=== PATIENT | female | born 1985 | race Caucasian/White ===

== ENCOUNTER 2016-10-27 17:53 | Emergency (ER) | payer MEDICAID ==
[~2016-10-27] VITALS: Ht 170.2 cm; Wt 90.9 kg
[2016-10-27 19:14] VITALS: BP 125/60
== END 2016-10-27 19:17 | disposition home or self-care (01) ==
LOC: EMS 17:56
DX: S80.02XA Contusion of left knee, initial encounter (principal); F17.210 Nicotine dependence, cigarettes, uncomplicated; W10.8XXA Fall (on) (from) other stairs and steps, initial encounter; Y93.89 Activity, other specified; Y92.89 Other specified places as the place of occurrence of the external cause; Y99.8 Other external cause status
CPT/HCPCS: 99284

== ENCOUNTER 2018-07-06 14:37 | Emergency (ER) | payer SELFPAY ==
[~2018-07-06] VITALS: Ht 157.5 cm; Wt 70.5 kg
[2018-07-06] MEDS ORDERED: CYCL10 PO (15:13)
[2018-07-06] MEDS ORDERED: TRAM50TA4 PO (15:13)
[2018-07-06] MEDS ORDERED: IBUPROFEN 600 MG TABLET PO ONE (15:15)
[2018-07-06] MEDS ORDERED: ACETAMINOPHEN 500 MG TABLET PO ONE (15:15)
[2018-07-06 19:57] VITALS: BP 120/80
== END 2018-07-06 19:59 | disposition home or self-care (01) ==
LOC: EMS 14:37
DX: Z02.89 Encounter for other administrative examinations (principal); M54.2 Cervicalgia; M54.5 Low back pain; F31.9 Bipolar disorder, unspecified; F17.210 Nicotine dependence, cigarettes, uncomplicated; Z98.890 Other specified postprocedural states; Z79.899 Other long term (current) drug therapy
CPT/HCPCS: 72070

== ENCOUNTER 2021-06-11 08:16 | Inpatient (IN) | payer MEDICAID ==
[~2021-06-11] VITALS: Ht 170.2 cm; Wt 67.5 kg
[~2021-06-11 08:16] MED LIST: CYCL-448 PO; TRAM50TA4 PO
[2021-06-11] MEDS ORDERED: DiphenhydrAMINE HCL 50 MG/ML VIAL IM ONE (08:30)
[2021-06-11] MEDS ORDERED: HALOPERIDOL LACTATE 5 MG/ML VIAL IM ONE ×2 (08:30→09:15)
[2021-06-11] MEDS ORDERED: LORazepam 2 MG/ML VIAL IM ONE (08:30)
[2021-06-11 09:38] LABS: BASOPHILS % (AUTO) 0.1 % (0.0-2.0); EOSINOPHILS % (AUTO) 0.1 % (1.0-6.0); HEMATOCRIT 31.4 % (36-46); HEMOGLOBIN 10.7 g/dL (12.0-16.0); LYMPHOCYTES # (AUTO) 1.2 K/uL (1.0-4.8); LYMPHOCYTES % (AUTO) 18.3 % (22.0-44.0); MEAN CORPUSCULAR HEMOGLOBIN 28.7 pg (26.0-34.0); MEAN CORPUSCULAR HGB CONC 34.1 G/dL (31.0-37.0); MEAN CORPUSCULAR VOLUME 84 fL (80-100); MONOCYTES # (AUTO) 0.6 K/uL (0.1-1.0); MONOCYTES % (AUTO) 9.7 % (2.0-9.0); NEUTROPHILS # (AUTO) 4.7 K/uL (1.8-7.7); NEUTROPHILS % (AUTO) 71.8 % (40.0-70.0); PLATELET COUNT (AUTO) 217 K/uL (150-450); RED BLOOD CELL COUNT(AUTO) 3.72 MIL/uL (4.00-5.20); RED CELL DISTRIBUTION WIDTH 13.5 % (11.5-14.5)
[2021-06-11 09:46] LABS: ANION GAP 11 mmol/L (8-16); CALCIUM, TOTAL 8.1 mg/dL (8.8-10.5); CARBON DIOXIDE 26 mmol/L (22-29); CHLORIDE 100 mmol/L (98-107); CREATININE 0.78 mg/dL (0.60-1.30); GLOMERULAR FILTR. RATE CALC > 60 mL/min (>60); GLUCOSE,RANDOM 66 mg/dL (70-110); SODIUM SERUM 137 mmol/L (136-145); UREA NITROGEN, BLOOD 29 mg/dL (7-18)
[2021-06-11 09:52] LABS: ALANINE AMINOTRANSFERASE 70 U/L (12-78); ALBUMIN 3.5 g/dL (3.4-5.0); ALKALINE PHOSPHATASE 104 U/L (46-116); ASPARTATE AMINOTRANSFERASE 67 U/L (15-37); BILIRUBIN,TOTAL 0.5 mg/dL (0.1-1.0); TOTAL PROTEIN, SERUM 7.6 g/dL (6.4-8.2)
[2021-06-11] MEDS ORDERED: POTASSIUM CHLORIDE 10% 40 MEQ/30 ML LIQUID UDCUP PO ONE (10:15)
[2021-06-11] MEDS ORDERED: ACETAMINOPHEN 325 MG TABLET PO PRN (10:15)
[2021-06-11 12:40] LABS: AMPHET/METH SCREEN,URINE POSITIVE (NEGATIVE); BARBITURATE SCREEN, URINE NEGATIVE (NEGATIVE); BENZODIAZEPINES SCREEN,URINE NEGATIVE (NEGATIVE); CANNABINOID SCREEN,URINE POSITIVE (NEGATIVE); COCAINE SCREEN,URINE NEGATIVE (NEGATIVE); METHADONE SCREEN, URINE NEGATIVE (NEGATIVE); OPIATE SCREEN,URINE NEGATIVE (NEGATIVE); PHENCYCLIDINE SCREEN,URINE NEGATIVE (NEGATIVE)
[2021-06-11 13:48] LABS: COVID AG,FIA SOURCE NASOPHARYNGEAL
[2021-06-11] MEDS ORDERED: HALOPERIDOL 5 MG TABLET PO PRN (17:15)
[2021-06-11] MEDS ORDERED: ZOLPIDEM TARTRATE 10 MG TABLET PO PRN (17:15)
[2021-06-11 19:11] VITALS: BP 102/61
[2021-06-12 06:55] VITALS: BP 105/78
[2021-06-12 08:15] VITALS: BP 108/70
[2021-06-12] MEDS ORDERED: LOPERAMIDE HCL 2 MG CAPSULE PO PRN (08:15)
[2021-06-12] MEDS ORDERED: IBUPROFEN 600 MG TABLET PO PRN (08:15)
[2021-06-12] MEDS ORDERED: MAGNESIUM HYDROXIDE SUSPENSION 30 ML UDCUP PO PRN (08:15)
[2021-06-12] MEDS ORDERED: CloNIDine HCL 0.1 MG TABLET PO PRN (08:15)
[2021-06-12] MEDS ORDERED: ALBUTEROL SULFATE HFA 90 MCG/PUFF 8 GM INHALER IH PRN (08:15)
[2021-06-12] MEDS ORDERED: ACETAMINOPHEN 325 MG TABLET PO PRN (08:15)
[2021-06-12] MEDS ORDERED: OMEPRAZOLE 20 MG CAPSULE PO PRN (08:15)
[2021-06-12] MEDS ORDERED: ONDANSETRON HCL 4 MG TABLET PO PRN (08:15)
[2021-06-12] MEDS ORDERED: POTASSIUM CHLORIDE 20 MEQ ER TABLET PO ONE (08:15)
[2021-06-12] MEDS ORDERED: MAG HYDROX/AL HYDROX/SIMETH ES 30 ML SUSPENSION UDCUP PO PRN (08:15)
[2021-06-12] MEDS ORDERED: BACITRACIN 28 GM OINTMENT TP PRN (08:15)
[2021-06-12] MEDS ORDERED: BENZOCAINE/MENTHOL LOZENGE PO PRN (08:15)
[2021-06-12] MEDS ORDERED: PETROLATUM,WHITE 28 GM JELLY TP PRN (08:15)
[2021-06-12] MEDS ORDERED: DOCUSATE SODIUM 100 MG CAPSULE PO PRN (08:15)
[2021-06-12] MEDS: LORazepam 2 MG TABLET PO PRN ×2 (08:31→17:19)
[2021-06-12 16:07] VITALS: BP 108/62
[2021-06-13 05:43] VITALS: BP 126/61
[2021-06-13 08:04] VITALS: BP 115/63
[2021-06-13 16:05] VITALS: BP 133/65
[2021-06-13] MEDS: RisperiDONE 1 MG TABLET PO SCH (16:54)
[2021-06-13] MEDS: LORazepam 2 MG TABLET PO PRN (19:17)
[2021-06-14 00:06] VITALS: BP 122/86
[2021-06-14] MEDS: RisperiDONE 1 MG TABLET PO SCH (08:35)
== END 2021-06-14 09:15 | disposition home or self-care (01) | DRG 750 ==
LOC: EMS 08:16 → B3A 14:53
PROVIDERS: ADMIT Psychiatry & Neurology Psychiatry; ATTEND Psychiatry & Neurology Psychiatry
DX: F25.9 Schizoaffective disorder, unspecified (principal); Z59.00 Homelessness unspecified; F12.10 Cannabis abuse, uncomplicated; F31.9 Bipolar disorder, unspecified; F41.9 Anxiety disorder, unspecified; G47.00 Insomnia, unspecified; Z20.822 Contact with and (suspected) exposure to COVID-19; K59.00 Constipation, unspecified; Z72.0 Tobacco use; Z71.6 Tobacco abuse counseling
CPT/HCPCS: 80053; 84703; 85025; 99291; G0480; J1200; J1630; J2060

== ENCOUNTER 2021-06-16 07:24 | Inpatient (IN) | payer MEDICAID ==
[~2021-06-16] VITALS: Ht 165.1 cm; Wt 65.5 kg
[2021-06-16 08:09] LABS: ANION GAP 8 mmol/L (8-16); BASOPHILS % (AUTO) 0.1 % (0.0-2.0); CALCIUM, TOTAL 9.1 mg/dL (8.8-10.5); CARBON DIOXIDE 28 mmol/L (22-29); CHLORIDE 100 mmol/L (98-107); EOSINOPHILS % (AUTO) 0.2 % (1.0-6.0); GLOMERULAR FILTR. RATE CALC > 60 mL/min (>60); GLUCOSE,RANDOM 75 mg/dL (70-110); HEMATOCRIT 34.3 % (36-46); HEMOGLOBIN 11.5 g/dL (12.0-16.0); LYMPHOCYTES # (AUTO) 1.9 K/uL (1.0-4.8); LYMPHOCYTES % (AUTO) 22.9 % (22.0-44.0); MEAN CORPUSCULAR HEMOGLOBIN 28.5 pg (26.0-34.0); MEAN CORPUSCULAR HGB CONC 33.5 G/dL (31.0-37.0); MEAN CORPUSCULAR VOLUME 85 fL (80-100); MONOCYTES # (AUTO) 0.9 K/uL (0.1-1.0); MONOCYTES % (AUTO) 11.3 % (2.0-9.0); NEUTROPHILS # (AUTO) 5.5 K/uL (1.8-7.7); NEUTROPHILS % (AUTO) 65.5 % (40.0-70.0); PLATELET COUNT (AUTO) 253 K/uL (150-450); RED BLOOD CELL COUNT(AUTO) 4.03 MIL/uL (4.00-5.20); RED CELL DISTRIBUTION WIDTH 13.7 % (11.5-14.5); SODIUM SERUM 136 mmol/L (136-145); UREA NITROGEN, BLOOD 23 mg/dL (7-18)
[2021-06-16 08:15] LABS: ALANINE AMINOTRANSFERASE 49 U/L (12-78); ALKALINE PHOSPHATASE 87 U/L (46-116); ASPARTATE AMINOTRANSFERASE 61 U/L (15-37); BILIRUBIN,TOTAL 0.7 mg/dL (0.1-1.0); TOTAL PROTEIN, SERUM 8.5 g/dL (6.4-8.2)
[2021-06-16] MEDS ORDERED: HALOPERIDOL LACTATE 5 MG/ML VIAL IM ONE ×2 (09:30→20:15)
[2021-06-16] MEDS ORDERED: LORazepam 2 MG/ML VIAL IM ONE ×2 (09:30→20:15)
[2021-06-16 12:36] LABS: COVID AG,FIA SOURCE NASAL SWAB
[2021-06-16 16:55] VITALS: BP 105/67
[2021-06-16 17:46] VITALS: BP 105/67
[2021-06-16] MEDS ORDERED: DiphenhydrAMINE HCL 50 MG/ML VIAL ONE (18:55)
[2021-06-16] MEDS ORDERED: DiphenhydrAMINE HCL 50 MG/ML VIAL IM ONE (20:15)
[2021-06-17] MEDS ORDERED: PETROLATUM,WHITE 28 GM JELLY TP PRN (06:45)
[2021-06-17] MEDS ORDERED: ONDANSETRON HCL 4 MG TABLET PO PRN (06:45)
[2021-06-17] MEDS ORDERED: ACETAMINOPHEN 325 MG TABLET PO PRN (06:45)
[2021-06-17] MEDS ORDERED: MAG HYDROX/AL HYDROX/SIMETH ES 30 ML SUSPENSION UDCUP PO PRN (06:45)
[2021-06-17] MEDS ORDERED: BACITRACIN 28 GM OINTMENT TP PRN (06:45)
[2021-06-17] MEDS ORDERED: IBUPROFEN 600 MG TABLET PO PRN (06:45)
[2021-06-17] MEDS ORDERED: OMEPRAZOLE 20 MG CAPSULE PO PRN (06:45)
[2021-06-17] MEDS ORDERED: MAGNESIUM HYDROXIDE SUSPENSION 30 ML UDCUP PO PRN (06:45)
[2021-06-17] MEDS ORDERED: BENZOCAINE/MENTHOL LOZENGE PO PRN (06:45)
[2021-06-17] MEDS ORDERED: LOPERAMIDE HCL 2 MG CAPSULE PO PRN (06:45)
[2021-06-17] MEDS ORDERED: DOCUSATE SODIUM 100 MG CAPSULE PO PRN (06:45)
[2021-06-17] MEDS ORDERED: ALBUTEROL SULFATE HFA 90 MCG/PUFF 8 GM INHALER IH PRN (06:45)
[2021-06-17] MEDS ORDERED: CloNIDine HCL 0.1 MG TABLET PO PRN (06:45)
[2021-06-17 07:12] VITALS: BP 102/65
[2021-06-17 07:16] VITALS: BP 102/65
[2021-06-17] MEDS: RisperiDONE 3 MG TABLET PO SCH ×2 (08:26→20:16)
[2021-06-17] MEDS: DIVALPROEX SODIUM 500 MG DR TABLET PO SCH ×2 (08:26→20:16)
[2021-06-17] MEDS: LITHIUM CARBONATE 300 MG CAPSULE PO SCH ×2 (08:27→20:16)
[2021-06-17 09:11] VITALS: BP 122/68
[2021-06-17 12:38] VITALS: BP 122/68
[2021-06-17] MEDS: LORazepam 2 MG TABLET PO PRN (20:16)
[2021-06-17] MEDS: ZOLPIDEM TARTRATE 10 MG TABLET PO PRN (20:16)
[2021-06-17 23:31] VITALS: BP 104/62
[2021-06-18 00:41] VITALS: BP 100/68
[2021-06-18 08:18] VITALS: BP 118/78
[2021-06-18] MEDS: DIVALPROEX SODIUM 500 MG DR TABLET PO SCH ×2 (08:40→20:08)
[2021-06-18] MEDS: RisperiDONE 3 MG TABLET PO SCH ×2 (08:40→20:09)
[2021-06-18] MEDS: LITHIUM CARBONATE 300 MG CAPSULE PO SCH ×2 (08:40→20:08)
[2021-06-18 16:09] VITALS: BP 127/63
[2021-06-19 07:11] VITALS: BP 124/69
[2021-06-19 08:22] VITALS: BP 119/79
[2021-06-19] MEDS: DIVALPROEX SODIUM 500 MG DR TABLET PO SCH ×2 (08:33→20:57)
[2021-06-19] MEDS: RisperiDONE 3 MG TABLET PO SCH ×2 (08:33→20:57)
[2021-06-19] MEDS: LORazepam 2 MG TABLET PO PRN ×2 (08:33→20:57)
[2021-06-19] MEDS: LITHIUM CARBONATE 300 MG CAPSULE PO SCH ×2 (08:34→20:57)
[2021-06-19] MEDS ORDERED: HALOPERIDOL LACTATE 5 MG/ML VIAL IM ONE (11:15)
[2021-06-19] MEDS ORDERED: LORazepam 2 MG/ML VIAL IM ONE (11:15)
[2021-06-19] MEDS ORDERED: DiphenhydrAMINE HCL 50 MG/ML VIAL IM ONE (11:15)
[2021-06-19 16:30] VITALS: BP 134/86
[2021-06-19] MEDS: HALOPERIDOL 5 MG TABLET PO PRN (20:57)
[2021-06-20 00:46] VITALS: BP 123/75
[2021-06-20 08:13] VITALS: BP 111/72
[2021-06-20] MEDS: DIVALPROEX SODIUM 500 MG DR TABLET PO SCH ×2 (08:23→20:13)
[2021-06-20] MEDS: RisperiDONE 3 MG TABLET PO SCH ×2 (08:23→20:13)
[2021-06-20] MEDS: LORazepam 2 MG TABLET PO PRN (08:23)
[2021-06-20] MEDS: LITHIUM CARBONATE 300 MG CAPSULE PO SCH ×2 (08:23→20:13)
[2021-06-21 04:19] VITALS: BP 120/64
[2021-06-21 07:32] LABS: LITHIUM 0.32 mmol/L (0.60-1.20)
[2021-06-21] MEDS: LITHIUM CARBONATE 300 MG CAPSULE PO SCH ×2 (08:13→20:23)
[2021-06-21] MEDS: DIVALPROEX SODIUM 500 MG DR TABLET PO SCH ×2 (08:14→20:22)
[2021-06-21] MEDS: LORazepam 2 MG TABLET PO PRN ×2 (08:14→17:22)
[2021-06-21] MEDS: RisperiDONE 3 MG TABLET PO SCH ×2 (08:14→20:22)
[2021-06-21] MEDS: HALOPERIDOL 5 MG TABLET PO PRN (09:13)
[2021-06-21 16:06] VITALS: BP 128/73
[2021-06-21] MEDS: ZOLPIDEM TARTRATE 10 MG TABLET PO PRN (20:23)
[2021-06-22 02:51] VITALS: BP 121/72
[2021-06-22 08:22] VITALS: BP 110/64
[2021-06-22] MEDS: RisperiDONE 3 MG TABLET PO SCH ×2 (08:43→20:32)
[2021-06-22] MEDS: LITHIUM CARBONATE 300 MG CAPSULE PO SCH ×2 (08:43→20:33)
[2021-06-22] MEDS: DIVALPROEX SODIUM 500 MG DR TABLET PO SCH ×2 (08:43→20:33)
[2021-06-22 16:10] VITALS: BP 113/64
[2021-06-22] MEDS: LORazepam 2 MG TABLET PO PRN (16:20)
[2021-06-22] MEDS: HALOPERIDOL 5 MG TABLET PO PRN (16:20)
[2021-06-23 05:33] VITALS: BP 123/69
[2021-06-23 08:19] VITALS: BP 113/6
[2021-06-23] MEDS: LITHIUM CARBONATE 300 MG CAPSULE PO SCH ×2 (08:29→20:49)
[2021-06-23] MEDS: LORazepam 2 MG TABLET PO PRN ×2 (08:29→19:21)
[2021-06-23] MEDS: RisperiDONE 3 MG TABLET PO SCH ×2 (08:29→20:49)
[2021-06-23] MEDS: DIVALPROEX SODIUM 500 MG DR TABLET PO SCH ×2 (08:29→20:49)
[2021-06-23 16:27] VITALS: BP 133/74
[2021-06-23] MEDS: ZOLPIDEM TARTRATE 10 MG TABLET PO PRN (22:24)
[2021-06-24 00:42] VITALS: BP 130/78
[2021-06-24] MEDS: LORazepam 2 MG TABLET PO PRN ×2 (02:45→08:00)
[2021-06-24] MEDS: RisperiDONE 3 MG TABLET PO SCH ×2 (08:00→20:45)
[2021-06-24] MEDS: DIVALPROEX SODIUM 500 MG DR TABLET PO SCH ×2 (08:00→20:45)
[2021-06-24] MEDS: LITHIUM CARBONATE 300 MG CAPSULE PO SCH ×2 (08:00→20:45)
[2021-06-24 08:31] VITALS: BP 116/64
[2021-06-24 16:36] VITALS: BP 120/60
[2021-06-25 00:36] VITALS: BP 116/64
[2021-06-25 08:18] VITALS: BP 116/63
[2021-06-25] MEDS: RisperiDONE 3 MG TABLET PO SCH ×2 (08:19→20:02)
[2021-06-25] MEDS: DIVALPROEX SODIUM 500 MG DR TABLET PO SCH ×2 (08:19→20:02)
[2021-06-25] MEDS: LITHIUM CARBONATE 300 MG CAPSULE PO SCH ×2 (08:19→20:02)
[2021-06-25] MEDS: LORazepam 2 MG TABLET PO PRN (08:20)
[2021-06-25 16:14] VITALS: BP 114/64
[2021-06-26 00:36] VITALS: BP 110/76
[2021-06-26] MEDS: LORazepam 2 MG TABLET PO PRN (03:16)
[2021-06-26] MEDS: LITHIUM CARBONATE 300 MG CAPSULE PO SCH ×2 (09:00→20:02)
[2021-06-26] MEDS: RisperiDONE 3 MG TABLET PO SCH ×2 (09:00→20:02)
[2021-06-26] MEDS: DIVALPROEX SODIUM 500 MG DR TABLET PO SCH ×2 (09:00→20:02)
[2021-06-26 16:15] VITALS: BP 113/66
[2021-06-26] MEDS: ZOLPIDEM TARTRATE 10 MG TABLET PO PRN (22:19)
[2021-06-27 00:13] VITALS: BP 117/62
[2021-06-27 08:21] VITALS: BP 110/68
[2021-06-27] MEDS: LORazepam 2 MG TABLET PO PRN (08:33)
[2021-06-27] MEDS: LITHIUM CARBONATE 300 MG CAPSULE PO SCH ×2 (08:33→20:00)
[2021-06-27] MEDS: DIVALPROEX SODIUM 500 MG DR TABLET PO SCH ×2 (08:33→20:00)
[2021-06-27] MEDS: RisperiDONE 3 MG TABLET PO SCH ×2 (08:33→20:00)
[2021-06-27 16:52] VITALS: BP 112/56
[2021-06-27] MEDS: ZOLPIDEM TARTRATE 10 MG TABLET PO PRN (21:42)
[2021-06-28 00:52] VITALS: BP 110/68
[2021-06-28] MEDS: LORazepam 2 MG TABLET PO PRN (08:09)
[2021-06-28 08:17] VITALS: BP 137/81
[2021-06-28] MEDS: LITHIUM CARBONATE 300 MG CAPSULE PO SCH ×2 (08:17→20:07)
[2021-06-28] MEDS: DIVALPROEX SODIUM 500 MG DR TABLET PO SCH ×2 (08:17→20:06)
[2021-06-28] MEDS: RisperiDONE 3 MG TABLET PO SCH ×3 (08:18→20:02)
[2021-06-28 10:12] LABS: GLUCOMETER DEV NAME(LOC) POC.BV
[2021-06-28 14:06] LABS: HIV 1-2 SCREEN 4TH GEN W/RFLX Preliminary Reactive (Non Reactive); HIV INTERPRETATION HIV-1 Positive; HIV-1 ANTIBODY(MULTISPOT) Reactive (Non Reactive); HIV-2 ANTIBODY(MULTISPOT) Non Reactive (Non Reactive)
[2021-06-28 16:17] VITALS: BP 113/61
[2021-06-28] MEDS: ZOLPIDEM TARTRATE 10 MG TABLET PO PRN (20:02)
[2021-06-29] MEDS: LORazepam 2 MG TABLET PO PRN ×2 (04:40→23:43)
[2021-06-29 07:22] VITALS: BP 125/70
[2021-06-29] MEDS: RisperiDONE 3 MG TABLET PO SCH ×2 (08:15→20:18)
[2021-06-29] MEDS: LITHIUM CARBONATE 300 MG CAPSULE PO SCH ×2 (08:19→20:51)
[2021-06-29] MEDS: DIVALPROEX SODIUM 500 MG DR TABLET PO SCH ×2 (08:19→20:51)
[2021-06-29 08:20] VITALS: BP 100/63
[2021-06-29 16:21] VITALS: BP 116/67
[2021-06-29] MEDS: ZOLPIDEM TARTRATE 10 MG TABLET PO PRN (20:18)
[2021-06-30 00:38] VITALS: BP 116/69
[2021-06-30 08:15] VITALS: BP 118/69
[2021-06-30] MEDS: LITHIUM CARBONATE 300 MG CAPSULE PO SCH ×4 (08:31→20:00)
[2021-06-30] MEDS: DIVALPROEX SODIUM 500 MG DR TABLET PO SCH ×4 (08:31→20:01)
[2021-06-30] MEDS: RisperiDONE 3 MG TABLET PO SCH ×2 (08:32→20:01)
[2021-06-30] MEDS: LORazepam 2 MG TABLET PO PRN (09:24)
[2021-06-30 16:44] VITALS: BP 108/75
[2021-07-01 02:17] VITALS: BP 110/67
[2021-07-01] MEDS: ZOLPIDEM TARTRATE 10 MG TABLET PO PRN (02:21)
[2021-07-01] MEDS: LORazepam 2 MG TABLET PO PRN (02:21)
[2021-07-01] MEDS: RisperiDONE 3 MG TABLET PO SCH (08:36)
[2021-07-01] MEDS: LITHIUM CARBONATE 300 MG CAPSULE PO SCH (08:36)
[2021-07-01] MEDS: DIVALPROEX SODIUM 500 MG DR TABLET PO SCH (08:36)
[2021-07-01 09:22] VITALS: BP 116/72
[2021-07-01] MEDS ORDERED: RISP3TAB44 PO (13:25)
[2021-07-01] MEDS ORDERED: LITH300C3 PO ×2 (13:26→14:06)
[2021-07-01] MEDS ORDERED: DIVA-112 PO ×2 (13:26→14:06)
[2021-07-01] MEDS ORDERED: RISP3TAB63 PO (14:06)
== END 2021-07-01 15:14 | disposition home or self-care (01) | DRG 750 ==
LOC: EMS 07:24 → B3A 13:51
PROVIDERS: ADMIT Psychiatry & Neurology Psychiatry; ATTEND Psychiatry & Neurology Psychiatry
DX: F25.9 Schizoaffective disorder, unspecified (principal); Z59.00 Homelessness unspecified; F12.10 Cannabis abuse, uncomplicated; F31.9 Bipolar disorder, unspecified; F41.9 Anxiety disorder, unspecified; G47.00 Insomnia, unspecified; Z20.822 Contact with and (suspected) exposure to COVID-19; K59.00 Constipation, unspecified; F17.210 Nicotine dependence, cigarettes, uncomplicated; Z71.6 Tobacco abuse counseling
CPT/HCPCS: 80053; 80164; 80178; 85025; 86701; 86702; 87081; 87389; G0480; J1200; J1630; J2060

== ENCOUNTER 2021-07-13 07:33 | Emergency (ER) | payer MEDICAID ==
[~2021-07-13] VITALS: Ht 170.2 cm; Wt 71.4 kg
[~2021-07-13 07:33] MED LIST changes: -CYCL-448 PO; +DIVA-112 PO; +LITH300C3 PO; +RISP3TAB44 PO; +RISP3TAB63 PO; -TRAM50TA4 PO
[2021-07-13] MEDS ORDERED: RINGERS SOLUTION,LACTATED 1,000 ML IV ONE (08:15)
[2021-07-13] MEDS ORDERED: LORazepam 2 MG/ML VIAL IVP ONE (08:15)
[2021-07-13 08:26] LABS: BASOPHILS % (AUTO) 0.1 % (0.0-2.0); EOSINOPHILS % (AUTO) 0.4 % (1.0-6.0); HEMATOCRIT 33.6 % (36-46); HEMOGLOBIN 11.3 g/dL (12.0-16.0); LYMPHOCYTES # (AUTO) 1.8 K/uL (1.0-4.8); MEAN CORPUSCULAR HEMOGLOBIN 28.9 pg (26.0-34.0); MEAN CORPUSCULAR HGB CONC 33.6 G/dL (31.0-37.0); MEAN CORPUSCULAR VOLUME 86 fL (80-100); MONOCYTES # (AUTO) 0.7 K/uL (0.1-1.0); MONOCYTES % (AUTO) 12.8 % (2.0-9.0); NEUTROPHILS # (AUTO) 2.7 K/uL (1.8-7.7); NEUTROPHILS % (AUTO) 52.7 % (40.0-70.0); PLATELET COUNT (AUTO) 231 K/uL (150-450); RED BLOOD CELL COUNT(AUTO) 3.91 MIL/uL (4.00-5.20); RED CELL DISTRIBUTION WIDTH 14.2 % (11.5-14.5)
[2021-07-13 08:30] LABS: ANION GAP 4 mmol/L (8-16); CALCIUM, TOTAL 8.7 mg/dL (8.8-10.5); CARBON DIOXIDE 31 mmol/L (22-29); CHLORIDE 102 mmol/L (98-107); CREATININE 0.64 mg/dL (0.60-1.30); GLOMERULAR FILTR. RATE CALC > 60 mL/min (>60); GLUCOSE,RANDOM 89 mg/dL (70-110); POTASSIUM 4.1 mmol/L (3.5-5.1); SODIUM SERUM 137 mmol/L (136-145); UREA NITROGEN, BLOOD 18 mg/dL (7-18)
[2021-07-13 08:55] LABS: ALANINE AMINOTRANSFERASE 32 U/L (12-78); ALBUMIN 3.8 g/dL (3.4-5.0); ALKALINE PHOSPHATASE 74 U/L (46-116); ASPARTATE AMINOTRANSFERASE 37 U/L (15-37); BILIRUBIN,TOTAL 0.5 mg/dL (0.1-1.0); CREATINE KINASE, TOTAL ONLY 318 U/L (26-192); TOTAL PROTEIN, SERUM 8.5 g/dL (6.4-8.2)
[2021-07-13 13:06] VITALS: BP 163/123
[2021-07-13 13:18] LABS: AMPHET/METH SCREEN,URINE POSITIVE (NEGATIVE); BARBITURATE SCREEN, URINE NEGATIVE (NEGATIVE); BENZODIAZEPINES SCREEN,URINE POSITIVE (NEGATIVE); CANNABINOID SCREEN,URINE POSITIVE (NEGATIVE); COCAINE SCREEN,URINE NEGATIVE (NEGATIVE); METHADONE SCREEN, URINE NEGATIVE (NEGATIVE); OPIATE SCREEN,URINE NEGATIVE (NEGATIVE); PHENCYCLIDINE SCREEN,URINE NEGATIVE (NEGATIVE)
== END 2021-07-13 13:24 | disposition home or self-care (01) ==
LOC: EMS 07:33
DX: F15.10 Other stimulant abuse, uncomplicated (principal); F99 Mental disorder, not otherwise specified; Z88.8 Allergy status to other drugs, medicaments and biological substances; Z79.899 Other long term (current) drug therapy
CPT/HCPCS: 36415; 80053; 80307; 82550; 85025; 96361; 96374; 99285; G0480; J2060; J7120

== ENCOUNTER 2021-07-15 09:16 | Inpatient (IN) | payer MEDICAID ==
[~2021-07-15] VITALS: Ht 170.2 cm; Wt 76.3 kg
[2021-07-15] MEDS ORDERED: DiphenhydrAMINE HCL 50 MG/ML VIAL IM ONE (10:00)
[2021-07-15] MEDS ORDERED: HALOPERIDOL LACTATE 5 MG/ML VIAL IM ONE (10:00)
[2021-07-15] MEDS ORDERED: LORazepam 2 MG/ML VIAL IM ONE (10:00)
[2021-07-15 10:29] LABS: COVID AG,FIA SOURCE NASOPHARYNGEAL
[2021-07-15 10:54] LABS: BASOPHILS % (AUTO) 0.1 % (0.0-2.0); EOSINOPHILS % (AUTO) 0.5 % (1.0-6.0); HEMATOCRIT 33.9 % (36-46); HEMOGLOBIN 11.2 g/dL (12.0-16.0); LYMPHOCYTES # (AUTO) 1.7 K/uL (1.0-4.8); LYMPHOCYTES % (AUTO) 27.1 % (22.0-44.0); MEAN CORPUSCULAR HEMOGLOBIN 28.9 pg (26.0-34.0); MEAN CORPUSCULAR HGB CONC 33.2 G/dL (31.0-37.0); MEAN CORPUSCULAR VOLUME 87 fL (80-100); MONOCYTES # (AUTO) 0.7 K/uL (0.1-1.0); MONOCYTES % (AUTO) 10.6 % (2.0-9.0); NEUTROPHILS # (AUTO) 3.8 K/uL (1.8-7.7); NEUTROPHILS % (AUTO) 61.7 % (40.0-70.0); PLATELET COUNT (AUTO) 246 K/uL (150-450); RED BLOOD CELL COUNT(AUTO) 3.88 MIL/uL (4.00-5.20); RED CELL DISTRIBUTION WIDTH 14.4 % (11.5-14.5)
[2021-07-15 11:22] LABS: LITHIUM < 0.20 mmol/L (0.60-1.20)
[2021-07-15 11:29] LABS: ALANINE AMINOTRANSFERASE 27 U/L (12-78); ALBUMIN 3.6 g/dL (3.4-5.0); ALKALINE PHOSPHATASE 64 U/L (46-116); ANION GAP 12 mmol/L (8-16); ASPARTATE AMINOTRANSFERASE 26 U/L (15-37); BILIRUBIN,TOTAL 0.5 mg/dL (0.1-1.0); CALCIUM, TOTAL 7.9 mg/dL (8.8-10.5); CARBON DIOXIDE 25 mmol/L (22-29); CHLORIDE 103 mmol/L (98-107); GLOMERULAR FILTR. RATE CALC > 60 mL/min (>60); GLUCOSE,RANDOM 85 mg/dL (70-110); HCG,QUANTITATIVE < 1 mIU/mL (0-6); SODIUM SERUM 140 mmol/L (136-145); TOTAL PROTEIN, SERUM 7.9 g/dL (6.4-8.2); UREA NITROGEN, BLOOD 16 mg/dL (7-18); VALPROIC ACID 4 mcg/mL (50-100)
[2021-07-15 11:39] LABS: POTASSIUM 2.9 mmol/L (3.5-5.1)
[2021-07-15] MEDS ORDERED: POTASSIUM CHLORIDE 20 MEQ ER TABLET PO ONE ×2 (11:45→16:15)
[2021-07-15] MEDS: POTASSIUM CHL 10 MEQ/WATER 50 ML IV SCH ×2 (12:23→13:30)
[2021-07-15] MEDS ORDERED: SODIUM CHLORIDE 0.9% 1,000 ML IV ONE (12:30)
[2021-07-15 17:26] VITALS: BP 106/67
[2021-07-15] MEDS ORDERED: BACITRACIN 28 GM OINTMENT TP PRN (20:45)
[2021-07-15] MEDS ORDERED: MAGNESIUM HYDROXIDE SUSPENSION 30 ML UDCUP PO PRN (20:45)
[2021-07-15] MEDS ORDERED: BENZOCAINE/MENTHOL LOZENGE PO PRN (20:45)
[2021-07-15] MEDS ORDERED: PETROLATUM,WHITE 28 GM JELLY TP PRN (20:45)
[2021-07-15] MEDS ORDERED: OMEPRAZOLE 20 MG CAPSULE PO PRN (20:45)
[2021-07-15] MEDS ORDERED: LOPERAMIDE HCL 2 MG CAPSULE PO PRN (20:45)
[2021-07-15] MEDS ORDERED: ACETAMINOPHEN 325 MG TABLET PO PRN (20:45)
[2021-07-15] MEDS ORDERED: IBUPROFEN 600 MG TABLET PO PRN (20:45)
[2021-07-15] MEDS ORDERED: ALBUTEROL SULFATE HFA 90 MCG/PUFF 8 GM INHALER IH PRN (20:45)
[2021-07-15] MEDS ORDERED: ONDANSETRON HCL 4 MG TABLET PO PRN (20:45)
[2021-07-15] MEDS ORDERED: MAG HYDROX/AL HYDROX/SIMETH ES 30 ML SUSPENSION UDCUP PO PRN (20:45)
[2021-07-15] MEDS ORDERED: CloNIDine HCL 0.1 MG TABLET PO PRN (20:45)
[2021-07-15] MEDS ORDERED: DOCUSATE SODIUM 100 MG CAPSULE PO PRN (20:45)
[2021-07-15 22:04] VITALS: BP 107/64
[2021-07-16 00:54] VITALS: BP 102/60
[2021-07-16 07:08] LABS: ANION GAP 5 mmol/L (8-16); CALCIUM, TOTAL 8.1 mg/dL (8.8-10.5); CARBON DIOXIDE 28 mmol/L (22-29); CHLORIDE 106 mmol/L (98-107); CREATININE 0.61 mg/dL (0.60-1.30); GLOMERULAR FILTR. RATE CALC > 60 mL/min (>60); GLUCOSE,RANDOM 104 mg/dL (70-110); POTASSIUM 4.4 mmol/L (3.5-5.1); SODIUM SERUM 139 mmol/L (136-145); UREA NITROGEN, BLOOD 13 mg/dL (7-18)
[2021-07-16 08:26] VITALS: BP 123/63
[2021-07-16] MEDS: LORazepam 2 MG TABLET PO PRN (10:46)
[2021-07-16 18:24] VITALS: BP 104/58
[2021-07-16] MEDS: LITHIUM CARBONATE 300 MG CAPSULE PO SCH (20:10)
[2021-07-16] MEDS: DIVALPROEX SODIUM 500 MG DR TABLET PO SCH (20:10)
[2021-07-16] MEDS: RisperiDONE 3 MG TABLET PO SCH (20:10)
[2021-07-17 02:22] VITALS: BP 133/79
[2021-07-17 08:24] VITALS: BP 105/64
[2021-07-17] MEDS: RisperiDONE 3 MG TABLET PO SCH ×2 (08:26→20:08)
[2021-07-17] MEDS: LITHIUM CARBONATE 300 MG CAPSULE PO SCH ×2 (08:26→20:08)
[2021-07-17] MEDS: DIVALPROEX SODIUM 500 MG DR TABLET PO SCH ×2 (08:26→20:08)
[2021-07-17] MEDS: LORazepam 2 MG TABLET PO PRN ×2 (08:27→17:12)
[2021-07-17 16:05] VITALS: BP 127/60
[2021-07-18 00:51] VITALS: BP 110/68
[2021-07-18 08:14] VITALS: BP 110/59
[2021-07-18] MEDS: RisperiDONE 3 MG TABLET PO SCH ×2 (08:29→20:03)
[2021-07-18] MEDS: DIVALPROEX SODIUM 500 MG DR TABLET PO SCH ×2 (08:30→20:02)
[2021-07-18] MEDS: LITHIUM CARBONATE 300 MG CAPSULE PO SCH ×2 (08:30→20:03)
[2021-07-18 16:43] VITALS: BP 113/69
[2021-07-19 04:38] VITALS: BP 118/68
[2021-07-19] MEDS: RisperiDONE 3 MG TABLET PO SCH ×2 (08:23→20:05)
[2021-07-19] MEDS: DIVALPROEX SODIUM 500 MG DR TABLET PO SCH ×2 (08:23→20:05)
[2021-07-19] MEDS: LITHIUM CARBONATE 300 MG CAPSULE PO SCH ×2 (08:24→20:05)
[2021-07-19 09:53] VITALS: BP 121/54
[2021-07-19 16:34] VITALS: BP 109/68
[2021-07-19] MEDS: LORazepam 2 MG TABLET PO PRN (17:09)
[2021-07-20 00:13] VITALS: BP 102/63
[2021-07-20 07:29] LABS: LITHIUM 0.35 mmol/L (0.60-1.20)
[2021-07-20 08:14] VITALS: BP 119/83
[2021-07-20] MEDS: LITHIUM CARBONATE 300 MG CAPSULE PO SCH ×2 (08:35→20:03)
[2021-07-20] MEDS: RisperiDONE 3 MG TABLET PO SCH ×2 (08:35→20:03)
[2021-07-20] MEDS: DIVALPROEX SODIUM 500 MG DR TABLET PO SCH ×2 (08:35→20:03)
[2021-07-20] MEDS: LORazepam 2 MG TABLET PO PRN ×2 (11:21→22:10)
[2021-07-20 16:19] VITALS: BP 122/81
[2021-07-20] MEDS: ZOLPIDEM TARTRATE 10 MG TABLET PO PRN (20:03)
[2021-07-20] MEDS: HALOPERIDOL 5 MG TABLET PO PRN (22:10)
[2021-07-21 00:29] VITALS: BP 117/76
[2021-07-21] MEDS: DIVALPROEX SODIUM 500 MG DR TABLET PO SCH ×2 (08:29→20:02)
[2021-07-21] MEDS: LITHIUM CARBONATE 300 MG CAPSULE PO SCH ×2 (08:29→20:02)
[2021-07-21] MEDS: RisperiDONE 3 MG TABLET PO SCH ×2 (08:29→20:02)
[2021-07-21] MEDS: LORazepam 2 MG TABLET PO PRN ×2 (08:35→21:06)
[2021-07-21 08:38] VITALS: BP 105/70
[2021-07-21 16:36] VITALS: BP 126/64
[2021-07-21] MEDS: ZOLPIDEM TARTRATE 10 MG TABLET PO PRN (20:02)
[2021-07-22 00:20] VITALS: BP 120/66
[2021-07-22 08:40] VITALS: BP 116/72
[2021-07-22] MEDS: DIVALPROEX SODIUM 500 MG DR TABLET PO SCH ×3 (08:47→22:24)
[2021-07-22] MEDS: LITHIUM CARBONATE 300 MG CAPSULE PO SCH ×3 (08:48→22:25)
[2021-07-22] MEDS: RisperiDONE 3 MG TABLET PO SCH ×2 (08:48→20:22)
[2021-07-22] MEDS: LORazepam 2 MG TABLET PO PRN ×2 (08:54→19:23)
[2021-07-22 16:16] VITALS: BP 114/60
[2021-07-22] MEDS: ZOLPIDEM TARTRATE 10 MG TABLET PO PRN (20:22)
[2021-07-23] MEDS: LORazepam 2 MG TABLET PO PRN ×2 (00:21→22:17)
[2021-07-23 03:23] VITALS: BP 119/75
[2021-07-23 08:08] VITALS: BP 121/84
[2021-07-23] MEDS: RisperiDONE 3 MG TABLET PO SCH ×2 (09:15→21:00)
[2021-07-23] MEDS: LITHIUM CARBONATE 300 MG CAPSULE PO SCH ×2 (09:15→21:27)
[2021-07-23] MEDS: DIVALPROEX SODIUM 500 MG DR TABLET PO SCH ×2 (09:15→21:27)
[2021-07-23 17:23] VITALS: BP 138/72
[2021-07-23] MEDS: HALOPERIDOL 5 MG TABLET PO PRN (21:27)
[2021-07-23] MEDS: ZOLPIDEM TARTRATE 10 MG TABLET PO PRN (23:00)
[2021-07-24 00:57] VITALS: BP 131/74
[2021-07-24] MEDS: HALOPERIDOL 5 MG TABLET PO PRN (01:45)
[2021-07-24] MEDS: DIVALPROEX SODIUM 500 MG DR TABLET PO SCH ×2 (08:35→21:14)
[2021-07-24] MEDS: LITHIUM CARBONATE 300 MG CAPSULE PO SCH ×2 (08:35→20:14)
[2021-07-24] MEDS: RisperiDONE 3 MG TABLET PO SCH ×2 (09:00→21:14)
[2021-07-24 16:18] VITALS: BP 111/64
[2021-07-24] MEDS: ZOLPIDEM TARTRATE 10 MG TABLET PO PRN (22:17)
[2021-07-25] MEDS: HALOPERIDOL 5 MG TABLET PO PRN ×2 (00:24→23:54)
[2021-07-25] MEDS: LORazepam 2 MG TABLET PO PRN ×2 (00:24→20:37)
[2021-07-25 08:22] VITALS: BP 116/60
[2021-07-25] MEDS: LITHIUM CARBONATE 300 MG CAPSULE PO SCH ×2 (08:23→20:37)
[2021-07-25] MEDS: RisperiDONE 3 MG TABLET PO SCH ×2 (08:23→20:37)
[2021-07-25] MEDS: DIVALPROEX SODIUM 500 MG DR TABLET PO SCH ×2 (08:23→20:37)
[2021-07-25 16:01] VITALS: BP 115/69
[2021-07-25] MEDS: ZOLPIDEM TARTRATE 10 MG TABLET PO PRN (22:14)
[2021-07-26 00:20] VITALS: BP 110/72
[2021-07-26] MEDS: LORazepam 2 MG TABLET PO PRN ×3 (00:47→20:23)
[2021-07-26] MEDS: HALOPERIDOL 5 MG TABLET PO PRN ×2 (08:28→20:24)
[2021-07-26] MEDS: DIVALPROEX SODIUM 500 MG DR TABLET PO SCH ×2 (09:00→21:00)
[2021-07-26] MEDS: LITHIUM CARBONATE 300 MG CAPSULE PO SCH ×2 (09:00→21:00)
[2021-07-26] MEDS: RisperiDONE 3 MG TABLET PO SCH ×2 (09:00→20:23)
[2021-07-26 11:45] VITALS: BP 126/89
[2021-07-26 16:24] VITALS: BP 121/83
[2021-07-26] MEDS: ZOLPIDEM TARTRATE 10 MG TABLET PO PRN (21:16)
[2021-07-26 22:57] LABS: GLUCOMETER DEV NAME(LOC) POC.BV
[2021-07-27 01:12] VITALS: BP 118/81
[2021-07-27] MEDS: LORazepam 2 MG TABLET PO PRN (01:20)
[2021-07-27 09:00] VITALS: BP 128/76
[2021-07-27] MEDS: LITHIUM CARBONATE 300 MG CAPSULE PO SCH ×2 (09:00→20:20)
[2021-07-27] MEDS: DIVALPROEX SODIUM 500 MG DR TABLET PO SCH ×2 (09:00→20:19)
[2021-07-27] MEDS: RisperiDONE 3 MG TABLET PO SCH ×2 (09:00→20:13)
[2021-07-27 16:26] VITALS: BP 107/62
[2021-07-27] MEDS: ZOLPIDEM TARTRATE 10 MG TABLET PO PRN (20:13)
[2021-07-27] MEDS: HALOPERIDOL 5 MG TABLET PO PRN (20:13)
[2021-07-28] MEDS: LORazepam 2 MG TABLET PO PRN (00:44)
[2021-07-28] MEDS ORDERED: DIVA-112 PO (01:59)
[2021-07-28] MEDS ORDERED: LITH300C3 PO (01:59)
[2021-07-28] MEDS ORDERED: RISP3TAB63 PO (01:59)
[2021-07-28 07:03] VITALS: BP 110/65
[2021-07-28 08:19] VITALS: BP 124/81
[2021-07-28] MEDS: DIVALPROEX SODIUM 500 MG DR TABLET PO SCH (09:00)
[2021-07-28] MEDS: LITHIUM CARBONATE 300 MG CAPSULE PO SCH (09:00)
[2021-07-28] MEDS: RisperiDONE 3 MG TABLET PO SCH (09:00)
== END 2021-07-28 13:30 | disposition home or self-care (01) | DRG 750 ==
LOC: EMS 09:16 → B3A 11:39
PROVIDERS: ADMIT Psychiatry & Neurology Psychiatry; ATTEND Psychiatry & Neurology Psychiatry
DX: F25.0 Schizoaffective disorder, bipolar type (principal); Z59.00 Homelessness unspecified; F12.10 Cannabis abuse, uncomplicated; F41.9 Anxiety disorder, unspecified; G47.00 Insomnia, unspecified; Z20.822 Contact with and (suspected) exposure to COVID-19; F17.200 Nicotine dependence, unspecified, uncomplicated; F15.10 Other stimulant abuse, uncomplicated; K59.00 Constipation, unspecified; Z78.1 Physical restraint status; Z88.8 Allergy status to other drugs, medicaments and biological substances; Z71.6 Tobacco abuse counseling; Z71.51 Drug abuse counseling and surveillance of drug abuser
CPT/HCPCS: 80048; 80053; 80164; 80178; 84702; 85025; 87081; 99291; G0480; J1200; J1630; J2060; J3480; J7030